=== PATIENT | female | born 1980 | race Two or more races ===

== ENCOUNTER 2018-09-18 13:10 | Emergency (ER) | payer SELFPAY ==
[~2018-09-18] VITALS: Ht 154.9 cm; Wt 72.7 kg
[2018-09-18 13:20] VITALS: BP 119/80; Ht 154.9 cm; Wt 72.7 kg
[2018-09-18] MEDS ORDERED: [UNRECOGNIZED DRUG - OTHER] (13:21)
[2018-09-18] MEDS ORDERED: PAIN MEDICATION (13:22)
[2018-09-18] MEDS ORDERED: STEROID (13:22)
[2018-09-18] MEDS ORDERED: [UNRECOGNIZED DRUG - REMARK] (13:22)
[2018-09-18] MEDS ORDERED: AUGMENTIN 875-11 TAB PO (18:27)
== END 2018-09-18 18:34 | disposition home or self-care (01) ==
LOC: D.ER 13:10
DX: J01.30 Acute sphenoidal sinusitis, unspecified (principal); R42 Dizziness and giddiness; R20.2 Paresthesia of skin; M54.2 Cervicalgia